=== PATIENT | female | born 1965 | race Two or more races ===

== ENCOUNTER 2020-07-27 13:02 | Emergency (ER) | payer MEDICARE ==
[~2020-07-27] VITALS: Ht 172.7 cm; Wt 99.3 kg
--- NOTE | 2020-07-27 13:58 | NUR ---
Assumed care of patient. C/O VB and cramping since D&C 2 months ago. NAD. Son at bedside. Will continue to monitor.
[2020-07-27] MEDS ORDERED: KETOROLAC 30 MG/1 ML IM ONE (14:00)
[2020-07-27] MEDS ORDERED: HYDROcodone/APAP 5/325 TABLET PO ONE (14:00)
[2020-07-27] MEDS ORDERED: KETOROLAC 30 MG/1 ML ONE (14:01)
[2020-07-27] MEDS ORDERED: HYDROcodone/APAP 5/325 TABLET ONE (14:01)
[2020-07-27 14:11] LABS: MICROSCOPIC NOT IND
[2020-07-27 14:13] LABS: ALANINE AMINOTRANSFERASE 45 U/L (12-78); ALBUMIN 3.5 g/dL (3.4-5.0); ANION GAP 7 mmol/L (5-15); CALCIUM 8.8 mg/dL (8.5-10.1); CHLORIDE 105 mmol/L (98-107); CREATININE 0.99 mg/dL (0.55-1.02)
[2020-07-27 14:16] LABS: MEAN CORPUSCULAR HEMOGLOBIN 20.7 pg (27.0-34.8); MEAN CORPUSCULAR HGB CONC 30.7 g/dL (32.4-35.8); MEAN PLATELET VOLUME 9.8 fL (7.4-10.4); PLATELET COUNT 163 x10^3/uL (130-400); RED BLOOD COUNT 5.47 x10^6/uL (3.82-5.3); RED CELL DISTRIBUTION WIDTH 14.4 % (9.6-15.2)
[2020-07-27 14:18] LABS: ALKALINE PHOSPHATASE 130 U/L (45-117); BILIRUBIN,TOTAL 0.6 mg/dL (0.2-1.0); TOTAL PROTEIN 7.4 g/dL (6.4-8.2)
--- NOTE | 2020-07-27 14:40 | NUR ---
Refusing transvaginal US due to pain. aware. Order changed to transabdominal US. Patient provided with water and instructed to call when she has the urge to urinate.
--- NOTE | 2020-07-27 14:54 | NUR ---
Report to EVELIA Tom.
--- NOTE | 2020-07-27 14:55 | NUR ---
Report from EVELIA Quintana. Assumed care.
--- NOTE | 2020-07-27 15:36 | NUR ---
US at bedside.
[2020-07-27 16:15] VITALS: BP 170/70
--- NOTE | 2020-07-27 16:17 | NUR ---
RN at bedside. Pt denies needs at this time.
[2020-07-27 16:37] LABS: MD YES
[2020-07-27 16:41] LABS: BAND#(MANUAL) 0.06 x10^3/uL; BANDS%(MANUAL) 1 % (0-7); EOS#(MANUAL) 0.06 x10^3/uL (0.0-0.4); EOS% (MANUAL) 1 % (1-7); LYMPH#(MANUAL) 1.98 x10^3/uL (1-3.4); LYMPHS% (MANUAL) 32 % (22-44); MONOS#(MANUAL) 0.25 x10^3/uL (0.3-2.7); MONOS% (MANUAL) 4 % (2-9); SEG#(MANUAL) 3.84 x10^3/uL (1.8-6.8); SEGS% (MANUAL) 62 % (42-75)
[2020-07-27 16:42] LABS: ANISOCYTOSIS 1+; HYPOCHROMIA 1+; MICROCYTOSIS 1+
[2020-07-27 16:43] LABS: <PLATELET ESTIMATE> ADEQUATE; LARGE PLATELETS 1+
== END 2020-07-27 16:34 | disposition home or self-care (01) ==
LOC: ED 15:45
DX: N92.1 Excessive and frequent menstruation with irregular cycle (principal); N93.8 Other specified abnormal uterine and vaginal bleeding; R94.31 Abnormal electrocardiogram [ECG] [EKG]; E11.9 Type 2 diabetes mellitus without complications
CPT/HCPCS: 36415; 76856; 80053; 81003; 84703; 85025; 93005; 96372; 99285; J1885